=== PATIENT | female | born 1965 | race Caucasian/White ===

== ENCOUNTER 2016-10-07 12:52 | Day surgery (SDC) | payer OTHER ==
[2016-10-07] MEDS ORDERED: LIDOCAINE IM ONE ×2 (13:00)
[2016-10-07] MEDS ORDERED: SODIUM BICARB IM ONE ×2 (13:00)
[2016-10-07] MEDS ORDERED: Iopamidol Inj 61% 50 ML VIAL INTRATHEC ONE (13:00)
[2016-10-07] MEDS ORDERED: Ropivacaine 0.2% VIAL 2 MG/ML VIAL IAC ONE (13:00)
[2016-10-07] MEDS ORDERED: BETAMET ACET/BETAMET NA PH 6 MG/1 ML - 5 ML IAC ONE (13:00)
[2016-10-07 14:35] VITALS: RESP 15; TEMP 98.1
--- NOTE | 2016-10-07 20:07 | GEN.OPNOTE ---
Facet Injection Procedure Code - Neurosurgery: 98683 : Fluoroscopic Guidance, 43870 : L/S Spine Facet/Med, 1st, 07067 : L/S Spine Facet/Med, 2nd, 89230 : L/S Spine Facet/Med, 3rd Level: Bilateral L4-5 and L5-S1 facet injections Preoperative Diagnosis: Lumbar facet arthropathy -: Consent: Rationale for procedure, nature of procedure, possible risks and benefits were discussed with the patient. Risks including allergic reaction to medications, known effects of steroid medications including transient elevations in blood sugar with aggravation of pre-existing diabetes and remote risk of aseptic necrosis of the hip. Infection or bleeding with potential risk of neurologic injury with weakness, paralysis or were all reviewed with the patient who wished to proceed. Anesthesia, sedation: No intravenous access or sedation was used. Physiologic monitoring of pulse and oxygen saturation was utilized. Procedure: The patient was placed prone on the operating room table, prepped with Chloroprep and sterilely draped. The skin was anesthetized with 1% Buffered Xylocaine. Under fluoroscopic control a 22-gauge needle was advanced [ bilaterally to the L4-5 and L5-S1] facet joints. Omnipaque was injected under real-time fluoroscopy demonstrating an facet arthrogram. Following this [1] ml of a mixture of Celestone (6mg/ml) and Ropivacaine was injected at each level. AP images of the final needle placement was obtained. The needle was removed and the patient returned to the post procedure recovery room where they were monitored for any side effects. Pain assessment: Preprocedure pain [9]/10, post procedure pain [10]/10. Discharge instructions: Patient was given a pain log to be filled out and returned. A delayed response to the steroids of 2-5 days was discussed.
== END 2016-10-07 15:50 | disposition home or self-care (01) ==
LOC: SDSC 12:52
PROVIDERS: ATTEND Neurological Surgery
DX: M12.88 Other specific arthropathies, not elsewhere classified, other specified site (principal)
CPT/HCPCS: 64493; 64494; 64495; 76000; J0702; J2795; J2001

== ENCOUNTER → 2017-04-18 | Outpatient (CLI) | payer SELFPAY ==
[2017-04-18 16:21] LABS: HEMATOCRIT 44.3 % (37.0-47.0); HEMOGLOBIN 15.3 g/dL (12.0-16.0); MEAN CORPUSCULAR HEMOGLOBIN 30.8 PG (27-31); MEAN CORPUSCULAR HGB CONC 34.5 g/dL (33-37); MEAN CORPUSCULAR VOLUME 89.3 FL (81-99); MEAN PLATELET VOLUME 9.7 FL (7.4-12.2); RED BLOOD COUNT 4.96 10^6/uL (4.20-5.40)
[2017-04-18 16:33] LABS: BLOOD UREA NITROGEN 9 mg/dL (7-22); CALCIUM 9.5 mg/dL (8.7-10.7); EST GLOMERULAR FILTRATION > 60 (>60 ml/min/1.73m(2)); SERUM ALBUMIN 4.1 g/dL (3.5-4.8)
[2017-04-18 16:35] LABS: HEMOGLOBIN A1C 8.73 % (4.2-6.0)
== END ==
LOC: MOB LAB 15:36
PROVIDERS: ATTEND Family Medicine
DX: E11.9 Type 2 diabetes mellitus without complications (principal); E66.9 Obesity, unspecified; I10 Essential (primary) hypertension; R60.0 Localized edema; Z72.0 Tobacco use
CPT/HCPCS: 36415; 80053; 83036; 83880; 85027